=== PATIENT | female | born 1970 | race Two or more races ===

== ENCOUNTER 2018-08-11 18:57 | Emergency (ER) | payer SELFPAY ==
[2018-08-11] MEDS ORDERED: Sodium Chloride 0.9% 10 ML Syringe FLUSH PRN (19:01)
[2018-08-11] MEDS: Nitroglycerin 0.4 MG Tab.SL SL ONE (19:07)
[2018-08-11] MEDS: Aspirin 81 MG Tab.Chew PO ONE (19:07)
[2018-08-11] MEDS: Sodium Chloride 0.9% 1,000 ML IV SCH (19:31)
--- NOTE | 2018-08-11 19:52 | CR ---
[id number] RAD/RAD Chest PA And Lateral EXAM: RAD Chest PA And Lateral INDICATION: CHEST PAIN COMPARISON: None. DISCUSSION: Cardiomediastinal silhouette is normal in size and contour. No infiltrate, effusion, pneumothorax, or edema. IMPRESSION: No acute cardiopulmonary abnormality. Silverio Jung DO 08/13/18 0855 Thank you for allowing us to participate in the care of your patient.
[2018-08-11 20:11] LABS: CHLORIDE,CL 106 mmol/L (98-107); SODIUM,NA 146 mmol/L (136-145)
[2018-08-11 20:12] LABS: ANION GAP 18.7 mmol/L (10-20)
[2018-08-11] MEDS: Enalaprilat 1.25 MG/ML SDV IVPUSH ONE (20:19)
[2018-08-11] MEDS: Lisinopril 10 MG Tab PO ONE (20:22)
[2018-08-11] MEDS: diphenhydrAMINE 50 MG/ML SDV IVPUSH ONE (20:34)
--- NOTE | 2018-08-11 20:34 | EDM.PDOC ---
ED HPI GENERAL MEDICAL PROBLEM - General Chief Complaint: Chest Pain Stated Complaint: CHEST PAIN Time Seen by Provider: 08/11/18 18:59 Source of Information: Reports: Patient, Family History Limitations: Reports: No Limitations - History of Present Illness INITIAL COMMENTS - FREE TEXT/NARRATIVE: Patient is brought to the ER with complaints of mid chest pain with radiation to her neck and jaw. She stated it started in the vehicle and she has not been doing any activity. She denies prior heart attack, no diabetes, no stroke, no headache, no anxiety. She denies nausea, vomiting, abdominal pain. No blood in urine or stool. No diarrhea. No new exertional dyspnea. She denies fever, chills, or recent illness. Take Lisinopril/HCTZ for blood pressure control but did not take it today. Onset: Today, Sudden Duration: Improving Location: Reports: Neck, Chest Quality: Reports: Pressure Severity: Moderate Improves with: Reports: None Worsens with: Reports: Breathing Associated Symptoms: Reports: No Other Symptoms Middle Chest Pain Score (Numeric/FACES): 10 Bilateral Jaw Pain Score (Numeric/FACES): 10 - Related Data Allergies Allergy/AdvReac Type Severity Reaction Status Date / Time No Known Allergies Allergy Verified 08/11/18 19:31 Home Meds: Home Meds Lisinopril 0 mg PO DAILY 08/11/18 [History] Past Medical History Cardiovascular History: Reports: Hypertension Social & Family History - Tobacco Use Smoking Status *Q: Unknown Ever Smoked ED ROS GENERAL - Review of Systems Review Of Systems: See Below Constitutional: Reports: No Symptoms HEENT: Reports: No Symptoms Respiratory: Reports: No Symptoms Cardiovascular: Reports: Chest Pain Endocrine: Reports: No Symptoms GI/Abdominal: Reports: No Symptoms : Reports: No Symptoms Musculoskeletal: Reports: Neck Pain, Other (left sided neck and jaw pain) Skin: Reports: No Symptoms Neurological: Reports: No Symptoms Psychiatric: Reports: No Symptoms Hematologic/Lymphatic: Reports: No Symptoms Immunologic: Reports: No Symptoms ED EXAM, GENERAL - Physical Exam Exam: See Below Exam Limited By: No Limitations General Appearance: Alert, WD/WN, Moderate Distress Eye Exam: Bilateral Eye: EOMI, Normal Inspection, PERRL Ears: Normal TMs Nose: Normal Inspection, Normal Mucosa, No Blood Throat/Mouth: Normal Inspection, Normal Lips, Normal Teeth, Normal Gums, Normal Oropharynx, Normal Voice, No Airway Compromise Head: Atraumatic, Normocephalic Neck: Normal Inspection, Supple, Non-Tender, Full Range of Motion Respiratory/Chest: No Respiratory Distress, Lungs Clear, Normal Breath Sounds, No Accessory Muscle Use, Chest Non-Tender Cardiovascular: Normal Peripheral Pulses, Regular Rate, Rhythm, No Edema, No Gallop, No JVD, No Murmur, No Rub GI/Abdominal: Normal Bowel Sounds, Soft, Non-Tender, No Organomegaly, No Distention, No Abnormal Bruit, No Mass Back Exam: Normal Inspection, Full Range of Motion, NT Extremities: Normal Inspection, Normal Range of Motion, Non-Tender, Normal Capillary Refill, No Pedal Edema Neurological: Alert, Oriented, CN II-XII Intact, Normal Cognition, Normal Gait, Normal Reflexes, No Motor/Sensory Deficits Psychiatric: Normal Affect, Normal Mood Skin Exam: Warm, Dry, Intact, Normal Color, No Rash Lymphatic: No Adenopathy Course - Vital Signs Last Recorded V/S: Last Vital Signs Temp 36.9 C 08/11/18 18:57 Pulse 73 08/11/18 21:08 Resp 14 08/11/18 21:08 BP 162/68 H 08/11/18 21:08 Pulse Ox 97 08/11/18 21:08 - Orders/Labs/Meds Orders: Active Orders 24 hr Category Date Time Status EKG 12 Lead [EKG Documentation Completion] [RC] STAT Care 08/11/18 19:37 Active EKG 12 Lead [EKG Documentation Completion] [RC] STAT Care 08/11/18 19:38 Active EKG Documentation Completion [RC] STAT Care 08/11/18 19:01 Ordered Sodium Chloride 0.9% [Normal Saline] 1,000 ml Med 08/11/18 19:15 Ordered IV ASDIRECTED Sodium Chloride 0.9% [Saline Flush] Med 08/11/18 19:01 Ordered 10 ml FLUSH ASDIRECTED PRN Saline Lock Insert [OM.PC] Routine Oth 08/11/18 19:01 Ordered Medication Orders Sodium Chloride (Normal Saline) 1,000 mls @ 999 mls/hr IV ASDIRECTED QUANG Last Admin: 08/11/18 19:31 Dose: 999 mls/hr Sodium Chloride (Saline Flush) 10 ml FLUSH ASDIRECTED PRN PRN Reason: Keep Vein Open Labs: Laboratory Tests 08/11/18 08/11/18 08/11/18 Range/Units 19:24 19:24 19:24 WBC 11.7 H (4.0-10.0) x10^3/uL RBC 4.99 (4.00-5.50) x10^6/uL Hgb 13.3 (12.0-16.0) g/dL Hct 41.6 (33.0-47.0) % MCV 83.4 (78.0-93.0) fL MCH 26.7 (26.0-32.0) pg MCHC 32.0 (32.0-36.0) g/dL RDW Coeff of Kassandra 15.3 H (10.0-15.0) % Plt Count 389 (130-400) x10^3/uL Add Manual Diff Yes Neutrophils % (Manual) 58 (50-80) % Band Neutrophils % 2 (0-6) % Lymphocytes % (Manual) 32 (25-50) % Monocytes % (Manual) 6 (2-11) % Eosinophils % (Manual) 2 (0-4) % PT 9.9 L (10.0-12.8) SEC INR 0.9 L (2.0-3.5) D-Dimer, Quantitative 0.21 (<=0.58) mg/LFEU Sodium 146 H (136-145) mmol/L Potassium 3.7 (3.5-5.1) mmol/L Chloride 106 (98-107) mmol/L Carbon Dioxide 25 (21-32) mmol/L Anion Gap 18.7 (10-20) mmol/L BUN 16 (7-18) mg/dL Creatinine 0.7 (0.55-1.02) mg/dL Est Cr Clr Drug Dosing TNP Estimated GFR (MDRD) > 60 Glucose 95 (74-106) mg/dL Calcium 9.6 (8.5-10.1) mg/dL Corrected Calcium 9.68 (8.5-10.1) mg/dL Magnesium 1.8 (1.8-2.4) mg/dL Total Bilirubin 0.3 (0.2-1.0) mg/dL AST 16 (15-37) U/L ALT 25 (14-59) U/L Alkaline Phosphatase 98 (46-116) U/L POC Troponin I (0.00-0.08) ng/mL C-Reactive Protein 1.0 H (<=0.9) mg/dL NT-Pro-B Natriuret Pep 17 (<=125) pg/mL Total Protein 8.3 H (6.4-8.2) g/dL Albumin 3.9 (3.4-5.0) g/dL Globulin 4.4 Albumin/Globulin Ratio 0.89 / Range/Units 19:35 WBC (4.0-10.0) x10^3/uL RBC (4.00-5.50) x10^6/uL Hgb (12.0-16.0) g/dL Hct (33.0-47.0) % MCV (78.0-93.0) fL MCH (26.0-32.0) pg MCHC (32.0-36.0) g/dL RDW Coeff of Kassandra (10.0-15.0) % Plt Count (130-400) x10^3/uL Add Manual Diff Neutrophils % (Manual) (50-80) % Band Neutrophils % (0-6) % Lymphocytes % (Manual) (25-50) % Monocytes % (Manual) (2-11) % Eosinophils % (Manual) (0-4) % PT (10.0-12.8) SEC INR (2.0-3.5) D-Dimer, Quantitative (<=0.58) mg/LFEU Sodium (136-145) mmol/L Potassium (3.5-5.1) mmol/L Chloride (98-107) mmol/L Carbon Dioxide (21-32) mmol/L Anion Gap (10-20) mmol/L BUN (7-18) mg/dL Creatinine (0.55-1.02) mg/dL Est Cr Clr Drug Dosing Estimated GFR (MDRD) Glucose (74-106) mg/dL Calcium (8.5-10.1) mg/dL Corrected Calcium (8.5-10.1) mg/dL Magnesium (1.8-2.4) mg/dL Total Bilirubin (0.2-1.0) mg/dL AST (15-37) U/L ALT (14-59) U/L Alkaline Phosphatase (46-116) U/L POC Troponin I 0.00 (0.00-0.08) ng/mL C-Reactive Protein (<=0.9) mg/dL NT-Pro-B Natriuret Pep (<=125) pg/mL Total Protein (6.4-8.2) g/dL Albumin (3.4-5.0) g/dL Globulin Albumin/Globulin Ratio Meds: Medications Generic Name Dose Route Start Last Admin Trade Name Freq PRN Reason Stop Dose Admin Sodium Chloride 1,000 mls @ 999 mls/hr 08/11/18 19:15 08/11/18 19:31 Normal Saline IV 999 mls/hr ASDIRECTED QUANG Administration Sodium Chloride 10 ml 08/11/18 19:01 Saline Flush FLUSH ASDIRECTED PRN Keep Vein Open Discontinued Medications Generic Name Dose Route Start Last Admin Trade Name Freq PRN Reason Stop Dose Admin Aspirin 324 mg 08/11/18 19:01 08/11/18 19:07 Aspirin PO 08/11/18 19:02 324 mg ONETIME ONE Administration Diphenhydramine HCl 25 mg 08/11/18 20:22 08/11/18 20:34 Benadryl IVPUSH 08/11/18 20:23 25 mg ONETIME ONE Administration Enalaprilat 1.25 mg 08/11/18 20:11 08/11/18 20:19 Vasotec Iv IVPUSH 08/11/18 20:12 1.25 mg ONETIME ONE Administration Furosemide 40 mg 08/11/18 20:59 08/11/18 21:03 Lasix IV 08/11/18 21:00 40 mg ONETIME ONE Administration Lisinopril 20 mg 08/11/18 20:17 08/11/18 20:22 Prinivil PO 08/11/18 20:18 20 mg ONETIME ONE Administration Lisinopril Confirm 08/11/18 20:26 08/11/18 20:43 Prinivil Administered 08/11/18 20:27 Not Given Dose 10 mg .ROUTE .STK-MED ONE Nitroglycerin 0.4 mg 08/11/18 19:02 08/11/18 19:07 Nitrostat SL 08/11/18 19:03 0.4 mg ONETIME ONE Administration - Re-Assessments/Exams Free Text/Narrative Re-Assessment/Exam: 06/22/19 20:35 Patient pain did resolve prior to administration of ASA and Nitro, however she did not vocalize this before these were given. I did ask when pain resolved and she told me before the medications. Review of labs and EKG do not show ACS, negative D-Dimer as well Departure - Departure Time of Disposition: 21:20 Disposition: Home, Self-Care 01 Condition: Good Clinical Impression: Atypical chest pain Instructions: Nonspecific Chest Pain, [id number] Referrals: PCP,Not In Area [Primary Care Provider] - Forms: ED Department Discharge Additional Instructions: Plan 1. Please make sure to take your medications as scheduled daily 2. Follow up with your primary doctor when you return for any additional tests he/she may want to have performed 3. If your chest pain returns, make sure to present to the nearest ER for evaluation 4. Please call if you have any further questions or concerns - Problem List & Annotations (1) Atypical chest pain SNOMED Code(s): 626670708 Code(s): R07.89 - OTHER CHEST PAIN Status: Acute Priority: Medium Current Visit: Yes - Problem List Review Problem List Initiated/Reviewed/Updated: Yes - My Orders Last 24 Hours: My Active Orders 08/11/18 19:01 EKG Documentation Completion [RC] STAT Sodium Chloride 0.9% [Saline Flush] 10 ml FLUSH ASDIRECTED PRN Saline Lock Insert [OM.PC] Routine 08/11/18 19:15 Sodium Chloride 0.9% [Normal Saline] 1,000 ml IV ASDIRECTED 08/11/18 19:37 EKG 12 Lead [EKG Documentation Completion] [RC] STAT 08/11/18 19:38 EKG 12 Lead [EKG Documentation Completion] [RC] STAT - Assessment/Plan Last 24 Hours: My Active Orders 08/11/18 19:01 EKG Documentation Completion [RC] STAT Sodium Chloride 0.9% [Saline Flush] 10 ml FLUSH ASDIRECTED PRN Saline Lock Insert [OM.PC] Routine 08/11/18 19:15 Sodium Chloride 0.9% [Normal Saline] 1,000 ml IV ASDIRECTED 08/11/18 19:37 EKG 12 Lead [EKG Documentation Completion] [RC] STAT 08/11/18 19:38 EKG 12 Lead [EKG Documentation Completion] [RC] STAT Assessment:: atypical chest pain Plan: Plan 1. Please make sure to take your medications as scheduled daily 2. Follow up with your primary doctor when you return for any additional tests he/she may want to have performed 3. If your chest pain returns, make sure to present to the nearest ER for evaluation 4. Please call if you have any further questions or concerns
[2018-08-11] MEDS: Lisinopril 10 MG Tab ONE (20:43)
[2018-08-11] MEDS: Furosemide 40 MG/4 ML VIAL IV ONE (21:03)
== END 2018-08-11 21:15 | disposition home or self-care (01) ==
LOC: VM.ED 18:57
DX: R07.89 Other chest pain (principal); I10 Essential (primary) hypertension
CPT/HCPCS: 36415; 71045; 80053; 83735; 83880; 84484; 85025; 85379; 85610; 86140; 93005; 96361; 96374; 96375; 99284; 99285; A9270; J1200; J1940; J7030